=== PATIENT | male | born 1955 | race Caucasian/White ===

== ENCOUNTER 2017-01-16 12:43 | Emergency (ER) | payer OTHER ==
[~2017-01-16] VITALS: Ht 180.3 cm; Wt 93.0 kg
[2017-01-16 14:41] VITALS: BP 128/72
== END 2017-01-16 14:41 | disposition home or self-care (01) ==
LOC: ED 12:43
DX: B34.9 Viral infection, unspecified (principal); I10 Essential (primary) hypertension; J20.9 Acute bronchitis, unspecified
CPT/HCPCS: 82962; J7613; J7644; Q0092